=== PATIENT | male | born 1985 | race Caucasian/White ===

== ENCOUNTER 2018-01-16 19:53 | Emergency (ER) | payer OTHER ==
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
--- NOTE | 2018-01-16 20:56 | RADIOLOGY IMAGING REPORT ---
FACILITY: [facility] PATIENT NAME: Jason Cruz : 1985 MR: [id number] V: [id number] EXAM DATE: ORDERING PHYSICIAN: BRANDT ENGLISH TECHNOLOGIST: Location: [facility] [place] Patient: Jason Cruz : 1985 Visit/Account:[id number] Date of Sevice: 01/16/2018 CT Head without contrast Indication: Headache. Head injury one week ago. Comparison: None available Technique: Axial CT images were obtained through the brain from the skull base to the vertex without administration of IV contrast. Reformatted coronal and sagittal images were also obtained. One of the following dose optimization techniques was utilized in the performance of this exam: autom ated exposure control; adjustment of the mA and/or kV according to the patient's size; or use of an i terative reconstruction technique. Specific details can be referenced in the facility's radiology CT exam operational policy. Findings: No evidence of mass, mass effect, or midline shift. No acute intracranial hemorrhage or acute territorial infarction. No extra-axial fluid collection or hydrocephalus. No abnormal density. Dickey/white matter differentiat ion appears normal. Bony structures show no fractures or aggressive bony lesions. Mucosal thickening seen in the right maxillary sinus. The remaining sinuses and mastoids visualized a re clear. IMPRESSION: 1. No acute intracranial abnormality. 2. Right maxillary sinus disease. Report Dictated By: Richie Lovett at 01/16/2018 8:44 PM Report E-Signed By: Richie Lovett at 01/16/2018 8:50 PM WSN:[id number]
[2018-01-16] MEDS ORDERED: CEFU500T10 PO (21:08)
[2018-01-16] MEDS ORDERED: PRED-1 PO (21:08)
[2018-01-16] MEDS ORDERED: predniSONE 20 MG TAB PO ONE (21:10)
[2018-01-16] MEDS ORDERED: CEFUROXIME AXETIL 250 MG TAB PO ONE (21:10)
[2018-01-16 21:15] VITALS: BP 132/72
== END 2018-01-16 21:18 | disposition home or self-care (01) ==
LOC: ER 20:08
DX: J01.00 Acute maxillary sinusitis, unspecified (principal); R51 Headache
CPT/HCPCS: 70450; 99283; J7512